=== PATIENT | female | born 1990 | race Caucasian/White ===

== ENCOUNTER 2019-07-22 06:49 | Day surgery (SDC) | payer OTHER ==
[2019-07-22] MEDS ORDERED: Lidocaine 1%/Sod Bicarbonate in NS 8.4% 1 ML Syringe IDERM PRN (07:00)
[2019-07-22] MEDS ORDERED: Lactated Ringers 1,000 ML IV SCH (07:00)
[2019-07-22] MEDS ORDERED: Sodium Chloride 0.9% 10 ML Syringe FLUSH PRN (07:00)
[2019-07-22] MEDS ORDERED: fentaNYL 100 MCG/2 ML SDV ONE (07:11)
[2019-07-22] MEDS ORDERED: Propofol 200 MG/20 ML SDV ONE ×2 (07:11→08:22)
[2019-07-22] MEDS ORDERED: Midazolam 1 MG/ML 2 ML SDV ONE ×2 (07:11→08:18)
--- NOTE | 2019-07-22 07:30 | PCM.PREANE ---
Preanesthetic Assessment - Anesthesia/Transfusion/Family Hx Anesthesia History: Prior Anesthesia Without Reaction Family History of Anesthesia Reaction: No Transfusion History: No Prior Transfusion(s) - Review of Systems General: Other (obesity) Pulmonary: No Symptoms Cardiovascular: No Symptoms Gastrointestinal: Constipation, Other (acid reflux) Neurological: No Symptoms Other: Reports: Anxiety (panic attacks) - Physical Assessment NPO Status Date: 07/21/19 NPO Status Time: 22:15 Weight: 109 kg ASA Class: 2 Mental Status: Alert & Oriented x3 Airway Class: Mallampati = 2 Dentition: Reports: Normal Dentition Thyro-Mental Finger Breadths: 3 Mouth Opening Finger Breadths: 3 ROM/Head Extension: Full Lungs: Clear to Auscultation, Normal Respiratory Effort Cardiovascular: Regular Rate, Regular Rhythm - Lab Values: Laboratory Last Values SARS Virus RNA (PCR) Negative (NEGATIVE) 07/19/19 14:00 - Allergies Allergies/Adverse Reactions: Allergies Allergy/AdvReac Type Severity Reaction Status Date / Time Penicillins Allergy Cannot Verified 07/19/19 16:36 Remember - Blood Product(s) Available: None - Anesthesia Plan Pre-Op Medication Ordered: None - Acknowledgements Anesthesia Type Planned: MAC Pt an Appropriate Candidate for the Planned Anesthesia: Yes Alternatives and Risks of Anesthesia Discussed w Pt/Guardian: Yes Pt/Guardian Understands and Agrees with Anesthesia Plan: Yes PreAnesthesia Questionnaire HEENT History: Reports: Allergic Rhinitis Cardiovascular History: Reports: None Respiratory History: Reports: None Gastrointestinal History: Reports: None Genitourinary History: Reports: UTI, Recurrent [employer] History: Reports: Other (See Below) Other OB/BYN History: irregular menses, pcos Musculoskeletal History: Reports: None Neurological History: Reports: None Psychiatric History: Reports: Anxiety, Panic Attack Endocrine/Metabolic History: Reports: Obesity/BMI 30+ Dermatologic History: Reports: None - Infectious Disease History Infectious Disease History: Reports: None - Past Surgical History HEENT Surgical History: Reports: Adenoidectomy, Oral Surgery, Tonsillectomy Cardiovascular Surgical History: Reports: None Respiratory Surgical History: Reports: None GI Surgical History: Reports: None Female Surgical History: Reports: None Male Surgical History: Reports: None Endocrine Surgical History: Reports: None Neurological Surgical History: Reports: None Musculoskeletal Surgical History: Reports: None Dermatological Surgical History: Reports: None - SUBSTANCE USE Smoking Status *Q: Never Smoker - HOME MEDS Home Medications: Home Meds Ondansetron [Zofran ODT] 4 mg PO Q6H PRN 07/19/19 [History] - CURRENT (IN HOUSE) MEDS Current Meds: Current Medications Lactated Ringer's (Ringers, Lactated) 1,000 mls @ 125 mls/hr IV ASDIRECTED TONNY Stop: 07/22/19 23:00 Lidocaine/Sodium Bicarbonate (Buffered Lidocaine 1% In Ns 8.4%) 0.25 ml IDERM ONETIME PRN PRN Reason: Prior to IV Start Stop: 07/22/19 18:00 Sodium Chloride (Saline Flush) 10 ml FLUSH ASDIRECTED PRN PRN Reason: Keep Vein Open Stop: 07/22/19 18:00 Discontinued Medications Fentanyl (Sublimaze) Confirm Administered Dose 100 mcg .ROUTE .STK-MED ONE Stop: 07/22/19 07:12 Midazolam HCl (Versed 1 Mg/Ml) Confirm Administered Dose 2 mg .ROUTE .STK-MED ONE Stop: 07/22/19 07:12 Propofol (Diprivan 20 Ml) Confirm Administered Dose 600 mg .ROUTE .STK-MED ONE Stop: 07/22/19 07:12
--- NOTE | 2019-07-22 08:49 | PCM48HPAN ---
Post Anesthesia Note - EVALUATION WITHIN 48HRS OF ANESTHETIC Vital Signs in Normal Range: Yes Patient Participated in Evaluation: Yes Respiratory Function Stable: Yes Airway Patent: Yes Cardiovascular Function Stable: Yes Hydration Status Stable: Yes Pain Control Satisfactory: Yes Nausea and Vomiting Control Satisfactory: Yes Mental Status Recovered: Yes Vital Signs: Last Vital Signs Temp 36.6 C 07/22/19 08:45 Pulse 76 07/22/19 08:45 Resp 15 07/22/19 08:45 BP 122/64 07/22/19 08:45 Pulse Ox 97 07/22/19 08:45
--- NOTE | 2019-07-22 08:51 | PCM.OPNOTE ---
- General Post-Op/Procedure Note Date of Surgery/Procedure: 07/22/19 Operative Procedure(s): EGD and colonoscopy Findings: 1. Gastritis 2. Nodular colonic mucosa Pre Op Diagnosis: constipation, nausea, bloating Post-Op Diagnosis: same Anesthesia Technique: MARYAN Primary Surgeon: Johanna Worthington Anesthesia Provider: Gerda Shrestha Pathology: 1. Gastric antrum 2. Ascending and transverse colon biopsies 3. Descending and sigmoid colon biopsies Output, Urine Amount: 0 EBL in mLs: 0 Complications: none apparent Condition: Good
--- NOTE | 2019-07-22 09:03 | PCM.PRNOTE ---
- Free Text/Narrative Note: Operative Report Date of Procedure: July 22, 2019 Pre Op Diagnosis: Constipation, bloating, nausea Post-Op Diagnosis: Same Operative Procedures: 1. EGD with biopsy 2. Colonoscopy to the cecum with biopsy Primary Surgeon: Johanna Worthington MD Anesthesia Provider: Gerda Shrestha CRNA Anesthesia Technique: MAC IV Fluid Replacement, Intraop: 900cc Output, Urine Amount: 0 cc EBL in mLs: 0cc Findings: 1. Gastritis 2. Nodular mucosa in entire colon Specimens: 1. Gastric antrum for H. pylori 2. Ascending and transverse colon biopsies 3. Descending and sigmoid colon biopsies Drain/Tubes: None Indication: The patient is an 29-year-old lady who presented to the clinic. The patient reported symptoms of bloating and nausea, as well as constipation. The patient was consented for a diagnostic EGD and colonoscopy. Risks of bleeding, and perforation were discussed, and the patient agreed to the risks and wished to proceed. Description of the procedure: The patient was taken back to the endoscopy suite, and placed in the left lateral decubitus position. A bite block was placed. The patient was sedated with MAC anesthesia. The Olympus video endoscope was inserted into the oropharynx and guided under direct vision into the esophagus, stomach, and duodenum. The duodenal bulb and second portion of the duodenum were unremarkable. The gastric antrum was inspected and cold biopsy forceps were used to take tissue samples for H. pylori. There was erythema consistent with gastritis. The scope was withdrawn to the stomach and retroflexed. There was increased bilious fluid in the upper gastrointestinal tract, but the patient was also retching so it was not clear when the fluid appeared. There was no abnormality noted in the esophagus. The endoscope was then withdrawn Next, anorectal examination was performed. No lesions, masses or hemorrhoids were noted externally or on palpation. The scope was placed into the rectum and advanced to cecum. Upon reaching the cecum, and the patients cecum was entered. There was minimal tortuosity of the colon. The ileocecal valve was well visualized and the appendiceal orifice identified. At this point, the scope was slowly withdrawn, paying attention to the mucosa. The patient had good bowel prep, 85-90 % of the mucosa was visible. Nodular mucosa was noted throughout the whole colon. Random colon biopsies were taken with a cold biopsy forceps in the ascending colon, transverse colon, descending colon, and sigmoid colon. In the rectum, scope was retroflexed and some hemorrhoidal tissue was noted. The scope was placed back in the lumen and excess air was aspirated. The scope was removed. The patient tolerated the procedure very well. Complications: None apparent Condition: The patient was transported to PACU in stable condition. Johanna Worthington MD General Surgery
== END 2019-07-22 09:40 | disposition home or self-care (01) ==
LOC: JD.SDS 06:49
PROVIDERS: ATTEND Surgery
DX: K29.50 Unspecified chronic gastritis without bleeding (principal); K63.89 Other specified diseases of intestine; K59.00 Constipation, unspecified; K64.9 Unspecified hemorrhoids; F41.9 Anxiety disorder, unspecified; E66.9 Obesity, unspecified; Z11.59 Encounter for screening for other viral diseases; Z88.0 Allergy status to penicillin; Z68.43 Body mass index [BMI] 50.0-59.9, adult
CPT/HCPCS: 43239; 45380; 81025; 87635; J2250; J2704; J3010; J7120; 00813; U0002